=== PATIENT | female | born 1970 | race Two or more races ===

== ENCOUNTER → 2021-08-13 08:00 | Outpatient (CLI) | payer OTHER ==
[~2021-08-13 08:00] MED LIST: CLONAZEPAM2 M1 PO; HUMULIN 70100 UNIT/1; METFORMIN HCL1000 M2 PO; PAXIL20 MG PO; RESTORIL30 M1 PO; SEROQUEL300 MG PO; SIMVASTATIN10 MG PO; TENORMIN50 M1 PO
== END | disposition home or self-care (01) ==
LOC: ADM 08-06 09:30 → LAB 08:00 → ADM 10:15 → EDSTATUS 08-16 10:15 → CIR.AMB 08-16 10:15
PROVIDERS: ATTEND Obstetrics & Gynecology
DX: N95.0 Postmenopausal bleeding (principal); D25.0 Submucous leiomyoma of uterus; N84.0 Polyp of corpus uteri; I10 Essential (primary) hypertension; J45.998 Other asthma; Z03.818 Encounter for observation for suspected exposure to other biological agents ruled out; Z20.828 Contact with and (suspected) exposure to other viral communicable diseases

== ENCOUNTER 2021-09-27 06:17 | Day surgery (SDC) | payer OTHER ==
[2021-09-27] MEDS ORDERED: NAPR500T14 PO (09:59)
[2021-09-27] MEDS ORDERED: MORGIDOX100 MG PO (09:59)
== END 2021-09-27 15:00 | disposition home or self-care (01) ==
LOC: CIR.AMB 06:17
PROVIDERS: ATTEND Obstetrics & Gynecology
DX: D25.0 Submucous leiomyoma of uterus (principal); N84.0 Polyp of corpus uteri; Z20.822 Contact with and (suspected) exposure to COVID-19